=== PATIENT | female | born 1990 | race Caucasian/White ===

== ENCOUNTER 2019-08-21 15:43 | Emergency (ER) | payer OTHER, SELFPAY ==
--- NOTE | 2019-08-21 15:50 | ED.GENADULT ---
HPI - General Adult General Chief complaint: Ear Stated complaint: Ear ache-Left Time Seen by Provider: 08/21/19 15:50 Source: patient Mode of arrival: ambulatory Limitations: no limitations History of Present Illness HPI narrative: 28-year-old female patient presents to the [facility] with complaints of left ear pain is been running in the past 2 weeks. Patient denies any fevers. Patient states he had a little bit of a runny nose and stuffy nose but denies any cough or sore throat. Patient states she has tried [id number] sinus medication along with taking her daily Zyrtec. Related Data Home Medications Medication Instructions Recorded Confirmed cetirizine [Zyrtec] 10 mg PO DAILY 08/21/19 08/21/19 fluoxetine 20 mg PO DAILY 08/21/19 08/21/19 [id number]-[id number]-ryiia acid 1 tablet PO DAILY 08/21/19 08/21/19 [Complete Multivitamin-Mineral] oxcarbazepine [Trileptal] 300 mg PO BID 08/21/19 08/21/19 vilazodone [Viibryd] 40 mg PO DAILY 08/21/19 08/21/19 Allergies Allergy/AdvReac Type Severity Reaction Status Date / Time No Known Allergies Allergy Verified 08/21/19 16:03 Review of Systems Review of Systems: Narrative: CONSTITUTIONAL: Denies fever, chills, or sweats. EYES: Denies visual changes, redness, or discharge. ENT: Positive rhinorrhea, congestion, sore throat, positive left otalgia. CARDIOVASCULAR: Denies chest pain, palpitations, or edema. RESPIRATORY: Denies cough or dyspnea. GASTROINTESTINAL: Denies abdominal pain, nausea, vomiting, or diarrhea. GENITOURINARY: Denies dysuria or hematuria. SKIN: Denies rash or itching. MUSCULOSKELETAL: Denies back pain, joint pain, or myalgia. NEUROLOGIC: Denies headache, numbness, or weakness. PSYCHIATRIC: Denies anxiety or depression. PMFSH Comments At the time of my signature I agree with nursing past medical history, surgical, social, and family history. There is no relevant family history pertinent to the presenting complaint. Exam Narrative: Exam Narrative: GENERAL: Well-appearing, well-nourished, and in no acute distress. HEAD: Normocephalic, atraumatic. EYES: PERRLA and EOMI. ENT: Nares clear, no rhinorrhea or epistaxis. Mucous membranes moist. Posterior pharynx with no erythema, tonsillar margin, exudates or lesions present. The bilateral TMs do appear slightly cloudy but I do not see any erythema or evidence of infection. NECK: Supple. No lymphadenopathy CHEST: Clear to auscultation. No respiratory distress. HEART: Regular rate and rhythm. No murmur heard. Normal peripheral pulses. ABDOMEN: Soft, nontender, nondistended, normal active bowel sounds. EXTREMITIES: Normal range of motion. No edema. SKIN: Warm, dry, no rash. NEURO: No focal deficits. Alert and oriented x3. Course Vital Signs Vital signs: Vital Signs Temperature 36.7 C 08/21/19 15:56 Pulse Rate 70 08/21/19 15:56 Respiratory Rate 16 08/21/19 15:56 Blood Pressure 115/72 08/21/19 15:56 Pulse Oximetry 100 08/21/19 15:56 Temperature 36.7 C 08/21/19 15:56 Pulse Rate 70 08/21/19 15:56 Respiratory Rate 16 08/21/19 15:56 Blood Pressure 115/72 08/21/19 15:56 Pulse Oximetry 100 08/21/19 15:56 Vital signs reviewed. Medical Decision Making Differential Diagnosis Differential Diagnosis: Differential diagnosis: Allergic rhinitis, chronic sinusitis, tonsillitis, acute sinusitis, infectious mononucleosis, seasonal influenza, pertussis, diphtheria, meningococcal disease, viral syndrome, viral bronchitis, RSV. Otitis media, otitis externa, perforated TM, infection of the outer ear, foreign body or cerumen impaction, ruptured TM, acute mastoiditis, ligament otitis externa, dehydration, pneumonia, sepsis, dental or intraoral infection, TMJ dysfunction Notify patient that it does appear that she is got some fluid behind the ears which is most likely what is causing her pain. Discussed with patient we will go ahead and discharge her home with a nasal steroid as well as an ora
[2019-08-21 15:56] VITALS: BP 115/72; PULSE 70; RESP 16; TEMP 36.7; O2SAT 100
== END 2019-08-21 16:13 | disposition home or self-care (01) ==
PROVIDERS: Emergency Provider Nurse Practitioner Family
DX: H93.8X3 Other specified disorders of ear, bilateral (principal); F32.9 Major depressive disorder, single episode, unspecified
CPT/HCPCS: 99203; G0463